=== PATIENT | female | born 1990 | race African-American/Black ===

== ENCOUNTER 2021-10-23 08:24 | Emergency (ER) | payer MEDICAID ==
[~2021-10-23] VITALS: Ht 157.5 cm; Wt 65.0 kg
[2021-10-23] MEDS ORDERED: SODIUM CHLORIDE 0.9% 1,000 ML IV ONE (09:15)
[2021-10-23] MEDS ORDERED: METOCLOPRAMIDE HCL 10MG/2ML VIAL IV ONE (09:15)
[2021-10-23] MEDS ORDERED: FAMOTIDINE 20MG/2ML VIAL IV ONE (09:15)
[2021-10-23 09:26] LABS: BASOPHILS % 0.5 % (0.0-2.0); EOSINOPHILS % 0.1 % (0.0-5.0); HEMATOCRIT. 40.6 % (36.0-48.0); HEMOGLOBIN. 13.7 g/dL (12.0-16.0); MEAN CORPUSCULAR HEMOGLOBIN 28.1 pg (28.0-32.0); MEAN CORPUSCULAR VOLUME 83.2 fL (81.0-99.0); MEAN PLATELET VOLUME 9.1 fl (7.4-10.4); MONOCYTES % 4.7 % (2.0-8.0); NEUTROPHILS % 82.7 % (40.0-76.0); PLATELET 316 x1000/uL (130-400); RED BLOOD CELL COUNT 4.88 mill/uL (4.2-5.4); RED CELL DISTRIBUTION WIDTH 13.5 % (11.6-14.6)
[2021-10-23 09:28] LABS: CHLORIDE 104 mEq/L (98-107)
[2021-10-23 09:51] LABS: B-HCG QUANTITATIVE 62541 mIU/mL (<3)
[2021-10-23] MEDS ORDERED: PYRIDOXINE HCL 50MG TABLET PO SCH ×2 (10:45→11:30)
[2021-10-23] MEDS ORDERED: DIPHENHYDRAMINE 50MG/ML VIAL IV ONE (12:45)
[2021-10-23] MEDS ORDERED: DEXT 5%/LACTATED RINGERS 1,000 ML IV ONE (12:45)
[2021-10-23] MEDS ORDERED: DOXY1TAB3 MT ×2 (13:30→14:57)
[2021-10-23 14:27] VITALS: BP 110/60
== END 2021-10-23 14:28 | disposition home or self-care (01) ==
LOC: ER 08:24
DX: O21.0 Mild hyperemesis gravidarum (principal); O30.001 Twin pregnancy, unspecified number of placenta and unspecified number of amniotic sacs, first trimester; O26.891 Other specified pregnancy related conditions, first trimester; R10.13 Epigastric pain; Z3A.01 Less than 8 weeks gestation of pregnancy
CPT/HCPCS: 36415; 76805; 76810; 80053; 84702; 85025; 86850; 86900; 86901; 96361; 96374; 96375; 99285; J1200; J2765; J3490; J7030; J7121